=== PATIENT | female | born 1955 | race Caucasian/White ===

== ENCOUNTER → 2017-01-02 | Outpatient (CLI) | payer OTHER ==
[~2017-01-02] MED LIST: CALC-20 PO; EST1 PO; LEVO200T6 PO; MGN PO; MULT-506 PO; PARO1TAB29 PO; RQP/2 PO
[2017-01-02 12:25] LABS: BASO ABS # 0.04 K/uL (0-0.2); COMPLETE YES; EOS % 10.4 %; HEMATOCRIT 40.4 % (37-47); IG% 0.2 %; LYMPH % 38.3 %; LYMPH ABS # 1.58 K/uL (1.2-3.4); MEAN CELL VOLUME 87.6 fL (80-100); MEAN CORPUSCULAR HEMOGLOBIN 30.4 pg (25-34); MEAN CORPUSCULAR HGB CONC 34.7 g/dl (32-36); MEAN PLATELET VOLUME 11.1 fL (7.4-10.4); MONO % 12.3 %; NEUT % 37.8 %; PLATELET COUNT 187 K/uL (130-400); RED BLOOD COUNT 4.61 M/uL (4.2-5.4); WHITE BLOOD COUNT 4.13 K/uL (4.8-10.8)
[2017-01-02 12:32] LABS: URINE APPEARANCE CLOUDY (CLEAR); URINE BILIRUBIN NEG (NEG); URINE COLOR DK YELLOW; URINE EPITHELIAL CELL AUTO >30 /lpf (0-5); URINE NITRITE NEG (NEG); URINE PH 5.5 (4.5-7.5); URINE SPECIFIC GRAVITY 1.028 (1.000-1.030); UROBILINOGEN NEG (NEG)
[2017-01-02 12:37] LABS: MANUAL MICROSCOPIC REQUIRED? NO; REVIEW REQ? NO
[2017-01-02 13:00] LABS: ESTIMATED AVERAGE GLUCOSE 114 mg/dl; HA1C FLAG Normal (Normal)
[2017-01-02 13:15] LABS: ALT/SGPT 23 U/L (12-78); AST/SGOT 18 U/L (15-37); BLOOD UREA NITROGEN 10 mg/dl (7-18); BUN/CREATININE RATIO 11.2 (10-20); CARBON DIOXIDE 26 mmol/L (21-32); CHLORIDE 107 mmol/L (98-107); GLUCOSE 97 mg/dl (70-99); POTASSIUM 4.2 mmol/L (3.5-5.1); SODIUM 142 mmol/L (136-145)
[2017-01-02 13:19] LABS: LYME DISEASE AB IGG NEG (NEG); LYME DISEASE AB IGM NEG (NEG)
[2017-01-02 13:27] LABS: ALKALINE PHOSPHATASE 26 U/L (45-117); CHOLESTEROL 186 mg/dl (0-200); HDL CHOLESTEROL 37 mg/dl; TRIGLYCERIDES 420 mg/dl (0-150)
[2017-01-05 23:34] LABS: HEPATITIS C VIRAL RNA BY PCR <15 NOT DETECTED IU/ML (<15); HEPATITIS C VIRAL RNA(LOG) PCR <1.18 NOT DETECTED LOG IU/ML (<1.18)
--- NOTE | 2017-01-08 13:16 | CODING QUERY MEDICAL NECESSITY ---
CQSUPPORTING DIAGNOSIS NEEDED A supporting diagnosis is required for the test/procedure performed on this patient in order for us to be reimbursed by the patient's insurance. Please provide a supporting diagnosis for the following test/procedure listed below next to the test name along with your signature. *If there is no additional diagnosis for this patient that would support the following test/procedure please document that below next to the test/procedure. Test(s)/Procedure(s) that require a supporting diagnosis: DOS 01/02/17 GLYCATED HEMOGLOBIN URINE CULTURE Provider Signature: Date: Thank you Latrice Mcgarry Health Information Management Once completed, please kindly fax back to [phone] For questions please call [phone]
== END | disposition home or self-care (01) ==
LOC: C.LABPBG 09:02
PROVIDERS: ATTEND Internal Medicine
DX: B19.20 Unspecified viral hepatitis C without hepatic coma (principal)

== ENCOUNTER → 2017-04-06 | Outpatient (CLI) | payer OTHER ==
[2017-04-06 11:04] LABS: BASO % 0.5 %; BASO ABS # 0.03 K/uL (0-0.2); COMPLETE YES; EOS % 4.1 %; IG% 0.9 %; LYMPH % 21.4 %; LYMPH ABS # 1.42 K/uL (1.2-3.4); MEAN CELL VOLUME 88.3 fL (80-100); MEAN CORPUSCULAR HEMOGLOBIN 29.6 pg (25-34); MEAN CORPUSCULAR HGB CONC 33.5 g/dl (32-36); MONO % 8.1 %; PLATELET COUNT 267 K/uL (130-400); RED BLOOD COUNT 4.19 M/uL (4.2-5.4); WHITE BLOOD COUNT 6.64 K/uL (4.8-10.8)
[2017-04-06 13:20] LABS: LYME DISEASE AB IGG POS (NEG); LYME DISEASE AB IGM POS (NEG)
[2017-04-12 02:38] LABS: 18KDIGG BAND NONREACTIVE (NONREACTIVE); 23KDIGG BAND REACTIVE (NONREACTIVE); 23KDIGM BAND REACTIVE (NONREACTIVE); 28KDIGG BAND NONREACTIVE (NONREACTIVE); 30KDIGG BAND REACTIVE (NONREACTIVE); 39KDIGG BAND REACTIVE (NONREACTIVE); 39KDIGM BAND REACTIVE (NONREACTIVE); 41KDIGG BAND REACTIVE (NONREACTIVE); 41KDIGM BAND REACTIVE (NONREACTIVE); 45KDIGG BAND REACTIVE (NONREACTIVE); 58KDIGG BAND NONREACTIVE (NONREACTIVE); 66KDIGG BAND REACTIVE (NONREACTIVE); 93KDIGG BAND NONREACTIVE (NONREACTIVE)
== END | disposition home or self-care (01) ==
LOC: C.LABBC 09:56
PROVIDERS: ATTEND Neuromusculoskeletal Medicine & OMM
DX: S30.861A Insect bite (nonvenomous) of abdominal wall, initial encounter (principal); W57.XXXA Bitten or stung by nonvenomous insect and other nonvenomous arthropods, initial encounter

== ENCOUNTER → 2017-12-09 | Outpatient (CLI) | payer OTHER ==
[2017-12-09 16:41] LABS: BASO % 0.4 %; BASO ABS # 0.03 K/uL (0-0.2); EOS % 3.9 %; EOS ABS # 0.32 K/uL (0-0.5); HEMATOCRIT 39.2 % (37-47); HEMOGLOBIN 13.4 g/dL (12.0-16.0); IG# 0.02 K/uL (0.00-0.02); LYMPH % 29.4 %; MEAN CELL VOLUME 87.9 fL (80-100); MEAN CORPUSCULAR HGB CONC 34.2 g/dl (32-36); MEAN PLATELET VOLUME 11.5 fL (7.4-10.4); MONO % 7.2 %; MONO ABS # 0.59 K/uL (0.11-0.59); NEUT % 58.9 %; NEUT ABS # 4.79 K/uL (1.4-6.5); PLATELET COUNT 185 K/uL (130-400); RED CELL DISTRIBUTION WIDTH CV 13.5 % (11.5-14.5); RED CELL DISTRIBUTION WIDTH SD 43.2 fL (36.4-46.3); WHITE BLOOD COUNT 8.15 K/uL (4.8-10.8)
[2017-12-09 17:00] LABS: ALBUMIN 3.9 gm/dl (3.4-5.0); ALT/SGPT 32 U/L (12-78); BLOOD UREA NITROGEN 17 mg/dl (7-18); CARBON DIOXIDE 26 mmol/L (21-32); GLUCOSE 95 mg/dl (70-99); POTASSIUM 3.8 mmol/L (3.5-5.1); SODIUM 137 mmol/L (136-145)
[2017-12-09 17:10] LABS: ALKALINE PHOSPHATASE 49 U/L (45-117); AST/SGOT 20 U/L (15-37); TOTAL PROTEIN 7.7 gm/dl (6.4-8.2)
== END | disposition home or self-care (01) ==
LOC: C.LABPBG 13:49
PROVIDERS: ATTEND Internal Medicine
DX: E03.9 Hypothyroidism, unspecified (principal); M19.90 Unspecified osteoarthritis, unspecified site; A69.20 Lyme disease, unspecified; M79.1 Myalgia; M25.50 Pain in unspecified joint; G25.81 Restless legs syndrome

== ENCOUNTER 2017-12-18 18:25 | Emergency (ER) | payer OTHER ==
--- NOTE | 2017-12-25 13:01 | EMERGENCY ROOM VISIT NOTE ---
History Chief Complaint: EYE PAIN Stated Complaint: PARTIAL BLINDNESS IN L EYE,SEVERE LOWER BACK PAIN History of Present Illness The patient is a 62 year old female who presents to the Emergency Room with complaints of a shadow and a crescent-shaped over her left eye. The patient presents during a [employer] downtime. The patient has not taken anything for her headache. Patient reports she has had a similar episode to this previously and that she saw ophthalmology for. She states that they drained fluid off of her eye. The patient also states that the shadow is actually getting better. She reports she has a headache and that the headache is not the worst headache of her life. Review of Systems See HPI for pertinent positives & negatives. A total of 10 systems reviewed and were otherwise negative. Past Medical/Surgical History Medical Problems: (1) Hypothyroidism Nos (2) Mild cognitive disorder Surgical Problems: (1) History of hysterectomy Family History Diabetes mellitus FH: cancer FH: heart disease FH: lung disease Hypertension Social History Smoking Status: Never Smoker Marital Status: Housing Status: lives with family Occupation Status: disabled Current/Historical Medications Scheduled Calcium Carbonate-Vitamin D (Calcium 600 + D), 4 TABS PO QPM Estradiol (Estradiol), 1 MG PO DAILY Levothyroxine Sodium (Levothyroxine Sodium), 200 MCG PO DAILY Magnesium (Magnesium), 400 MG PO DAILY Multivitamin (Multivitamin), 1 TAB PO DAILY Paroxetine (Paxil), 40 MG PO QPM Ropinirole Hydrochloride (Requip), 2 MG PO HS Physical Exam Physical Exam GENERAL: Awake, alert, well-appearing, in no acute distress HENT: Normocephalic, atraumatic. Oropharynx unremarkable. EYES: Normal conjunctiva. Sclera non-icteric.MIKE: WNL, no evidence of retinal detachment NECK: Supple. No nuchal rigidity. FROM. No JVD. RESPIRATORY: Clear to auscultation. CARDIAC: Regular rate, normal rhythm. Extremities warm and well perfused. Pulses equal. ABDOMEN: Soft, non-distended. No tenderness to palpation. No rebound or guarding. No masses. RECTAL: Deferred. MUSCULOSKELETAL: Chest examination reveals no tenderness. The back is symmetrical on inspection without obvious abnormality. There is no CVA tenderness to palpation. No joint edema. LOWER EXTREMITIES: Calves are equal size bilaterally and non-tender. No edema. No discoloration. NEURO: Normal sensorium. No sensory or motor deficits noted. SKIN: No rash or jaundice noted. Medical Decision & Procedures Medical Decision This is a 62-year-old female who presents the emergency department with a crescent shaped shadow over her eye. Patient reports she has had this previously. On funduscopic exam I do not see anything contributory. I did recommend to the patient that she receive a CAT scan of the head as well as laboratory work as well as a migraine cocktail to see if this alleviated her symptoms however the patient is adamantly refusing all of this. I did discuss the case with the eye surgeon compensation and benefits administrator who agreed to see the patient in the next 48 hours. I again discussed my findings with the patient who states that the vision has totally resolved at this point. Based on this I feel the patient can be safely discharged home. I will note that the patient reports during a period of high volume and high acuity during an unscheduled [employer] downtime. Impression Primary Impression: Vision abnormalities Departure Information Dispostion Home / Self-Care Condition FAIR Referrals Mihir Lerma M.D. (PCP) Forms WORK / SCHOOL INSTRUCTIONS, HOME CARE DOCUMENTATION FORM, IMPORTANT VISIT INFORMATION Patient Instructions [facility]
== END 2017-12-19 01:18 | disposition home or self-care (01) ==
LOC: C.EDB 18:25
DX: H53.9 Unspecified visual disturbance (principal); R51 Headache; E03.9 Hypothyroidism, unspecified; Z79.890 Hormone replacement therapy; Z90.710 Acquired absence of both cervix and uterus; Z83.3 Family history of diabetes mellitus; Z82.49 Family history of ischemic heart disease and other diseases of the circulatory system; Z83.6 Family history of other diseases of the respiratory system